=== PATIENT | female | born 1975 | race Caucasian/White ===

== ENCOUNTER → 2018-08-03 20:22 | Outpatient (CLI) | payer BC ==
[~2018-08-03 20:22] MED LIST: PERCOCET 10/3251 TA1 PO
== END | disposition home or self-care (01) ==
LOC: D.MAMMO 16:00
DX: Z12.31 Encounter for screening mammogram for malignant neoplasm of breast (principal)

== ENCOUNTER → 2018-08-20 16:54 | Outpatient (CLI) | payer BC | END | disposition home or self-care (01) | LOC: D.MAMMO 11:45 | DX: R92.8 Other abnormal and inconclusive findings on diagnostic imaging of breast (principal) ==

== ENCOUNTER 2019-08-12 08:00 | Outpatient (CLI) | payer BC | END 2019-08-12 23:59 | disposition home or self-care (01) | LOC: D.MAMMO 08:00 | PROVIDERS: ATTEND Nurse Practitioner Family | DX: Z12.31 Encounter for screening mammogram for malignant neoplasm of breast (principal) ==

== ENCOUNTER 2019-08-19 09:00 | Outpatient (CLI) | payer BC | END 2019-08-19 10:00 | disposition home or self-care (01) | LOC: D.MAMMO 09:00 | PROVIDERS: ATTEND Nurse Practitioner Family | DX: R92.8 Other abnormal and inconclusive findings on diagnostic imaging of breast (principal) ==